=== PATIENT | male | born 1945 | race Caucasian/White ===

== ENCOUNTER 2021-12-02 18:52 | Day surgery (SDC) | payer MEDICARE, OTHER, SELFPAY ==
[2021-12-02 19:05] VITALS: BP 107/70; PULSE 104; RESP 18; TEMP 36.6; O2SAT 98; BMI 25.1
--- NOTE | 2021-12-02 19:17 | ED_ITS ---
HPI - General Adult General: Chief complaint: Urogenital-Male Stated complaint: unable to pee Time Seen by Provider: 12/02/21 19:14 History of Present Illness: Patient is a 76-year-old male with a history of hemorrhoids diabetes presenting to the emergency room for concerns of retained foreign object per rectum and difficulty urinating. Patient tells me that yesterday when he used a pear set up Preparation H. However, patient accidnetly inserted the pair into his rectum. Since then, patient has had difficulty peeing. Patient says that he has not peed all day. He denies any nausea vomiting, fever/chills, chest pain, shortness breath, palpitation, abdominal pain, diarrhea, melena/hematochezia. Onset:32 hrs ago Duration:32 hrs Location:home Severity:moderate Associated symptoms: Deny chest pain, dyspnea, nausea, rash, palpitations or vomiting Review of Systems Const: Denies: fever(s) or chills Eyes: Denies: change in vision ENMT: Denies: mouth pain Card: Denies: chest pain or palpitations Resp: Denies: dyspnea or non-productive cough GI: Denies: abdominal pain, nausea, vomiting or diarrhea : Reports: other (+rectal pain and difficulty voiding); Denies: dysuria Musc: Denies: extremity pain Skin/Breast: Denies: rash or new lesions Neuro: Denies: weakness in extremities Psych: Reports: other (Normal mood) Rivas/Lymph: Denies: easy bruising PFSH ED PFSH: Medical History Diabetes Hemorrhoid Hypertension Social History Smoking and tobacco status: never smoked Alcohol intake: never Substance/Drug Use: never Physical Exam Const: COMMON NORMALS: alert HENMT: COMMON NORMALS: atraumatic HEAD & SCALP: atraumatic MOUTH: moist mucous membranes not abnormal Eye: COMMON NORMALS: EOMs intact bilaterally and conjunctivae normal CONJUNCTIVA: Yes conjunctivae normal Neck/C-Spine: COMMON NORMALS: full ROM and supple Resp: COMMON NORMALS: normal respiratory effort and clear to auscultation bilaterally AUSCULTATION: clear to auscultation bilaterally Cardio: COMMON NORMALS: regular rate RATE: regular rate GI: COMMON NORMALS: Soft to palpation and non-tender PALPATION: Yes Soft to palpation OTHER: +Mild suprapubic TTP. NO guarding rebound, guarding, rigidity. No CVA tenderness to percussion. Neg Gauthier/Neg McBurney's point tenderness, no suprabupic tenderness to palpation. Rectal exam without evidence of hemorrhoids, fissures. No prostatic enlargment, no tenderness of prostate. Stool guiac negative. : OTHER: +Exam supervised by Magdalena MCKENZIE: Normal external genitalia, Testicles non-tender b/l, no erythema. Extremity: COMMON NORMALS: full ROM Neuro: SENSORIUM/ORIENTATION: Yes alert MOTOR EXAM: No Abnormal motor strength present and Other motor observations present (no focal motor deficits) Psych: COMMON NORMALS: speech normal SPEECH: Yes normal speech MOOD & AFFECT: Yes euthymic mood Course Vital Signs: Vital signs: Vital Signs Temperature 97.6 F 12/03/21 00:20 Pulse Rate 60 12/03/21 00:37 Respiratory Rate 18 12/03/21 00:37 Blood Pressure 119/75 12/03/21 00:37 Pulse Oximetry 97 12/03/21 00:37 Oxygen Delivery Me thod 12/03/21 00:37 Oxygen Flow Rate 5 12/03/21 00:00 [facility] [place] - General Adult Medical Decision Making Patient is a 76-year-old male with a history of hemorrhoids diabetes presenting to the emergency room for concerns of retained foreign object per rectum and difficulty urinating. Physical exam, patient is hemodynamically stable with mild suprapubic area tenderness to palpation. X-ray did not show any focal finding. CT abdomen pelvis showed a 6.7 x 9.5 x 7.1 radiographic lesion. This was discussed with Dr. Parikh who assessed patient at bedside. Disposition: OR Lab Data : 12/02/21 20:20 12/02/21 20:20 Radiology Impressions Pelvis X-Ray 12/02/21 19:24 IMPRESSION: No acute findings. Negative for radiodense foreign body seen. Pelvis CT 12/02/21 20:04 IMPRESSION: 1. 6.7 x 9.5 x 7.1 cm radiodensity in the rectum suspected without free air or findings to suggest perforation. 2. Small bilateral right greater than left inguinal hernias containing bowel without dilation. 3. Small umbilical hernia containing omentum without bowel. 4. Two right kidney punctate nonobstructing calyceal stones. Laboratory Results WBC 11.1 10^3/uL (4.0-10.0) H 12/02/21 20:20 RBC 4.37 10^6/uL (4.1-5.3) 12/02/21 20:20 Hgb 14.0 g/dL (11.7-16.6) 12/02/21 20:20 Hct 40.8 % (42.0-52.0) L 12/02/21 20:20 MCV 93.4 fl (80-94) 12/02/21 20:20 MCH 32.0 pg (28.0-34.0) 12/02/21 20: MCHC 34.3 g/dL (30.0-36.0) 12/02/21 20:20 RDW 12.0 % (12.1-15.1) L 12/02/21 20:20 Plt Count 224 10^3/cmm (130-400) 12/02/21 20:20 MPV 10.1 fL (7.4-10.4) 12/02/21 20:20 Neut % (Auto) 81.0 % 12/02/21 20:20 Lymph % (Auto) 10.3 % 12/02/21 20:20 Wilkin % (Auto) 7.7 % 12/02/21 20:20 Eos % (Auto) 0.4 % 12/02/21 20:20 Baso % (Auto) 0.2 % 12/02/21 20:20 Neut # (Auto) 9.02 10^3/uL (1.8-7.7) H 12/02/21 20:20 Lymph # (Auto) 1.1 10^3/uL (0.8-4.8) 12/02/21 20:20 Wilkin # (Auto) 0.9 10^3/uL (0.2-0.9) 12/02/21 20:20 Eos # (Auto) 0.0 10^3/uL (0.0-0.8) 12/02/21 20:20 Baso # (Auto) 0.0 10^3/uL (0.0-0.1) 12/02/21 20:20 Nucleated RBC % (auto) 0 % 12/02/21 20:20 Nucleated RBCs # 0.0 /100WBC 12/02/21 20:20 Sodium 139 mmol/L (136-145) 12/02/21 20:20 Potassium 4.0 mmol/L (3.5-5.1) 12/02/21 20:20 Chloride 102 mmol/L (98-107) 12/02/21 20:20 Carbon Dioxide 26 mmol/L (22-29) 12/02/21 20:20 Anion Gap 15.0 (5-19) 12/02/21 20:20 BUN 34 mg/dL (8-23) H 12/02/21 20:20 Creatinine 1.0 mg/dL (0.7-1.2) 12/02/21 20:20 GFR Calculation Not Reportable 12/02/21 20:20 Glucose 157 mg/dL (65-115) H 12/02/21 20:20 Calculated Osmolality 299 mOsm/kg (285-295) H 12/02/21 20:20 Calcium 9.5 mg/dL (8.5-10.5) 12/02/21 20:20 Total Bilirubin 1.1 mg/dL (0.15-1.2) 12/02/21 20:20 AST 20 U/L (0-40) 12/02/21 20:20 ALT 16 U/L (0-41) 12/02/21 20:20 Alkaline Phosphatase 79 U/L (40-130) 12/02/21 20:20 Total Protein 6.6 g/dL (6.6-8.7) 12/02/21 20:20 Albumin 4.2 g/dL (3.5-5.2) 12/02/21 20:20 Globulin 2.4 g/dL (1.3-4.6) 12/02/21 20:20 Lipase 18 U/L (13-60) 12/02/21 20:20 Imaging Data Other Imaging: Radiologist's impression: [address] [address] [address] Scan Report Signed Patient: Kelby Floyd Unit #: [id number] : 1945 Age/Sex: 76 / M ADM Date: 12/02/21 Loc: ER Room/Bed: Attending Dr: Ordering Provider/Ordering MD: Edouard Lantigua MD Date of Service: 12/02/21 Procedure(s): CT pelvis wo con [id number] Accession Number(s): [id number] Report Number: [id number] PROCEDURE INFORMATION: Exam: CT Pelvis Without Contrast Exam date and time: 12/02/2021 8:11 PM Age: 76 years old Clinical indication: Other: Foreign body (pear) in rectum; Additional info: Retained foreign object TECHNIQUE: Imaging protocol: Computed tomography of the pelvis without contrast. Radiation optimization: All CT scans at this facility use at least one of these dose optimization techniques: automated exposure control; mA and/or kV adjustment per patient size (includes targeted exams where dose is matched to clinical indication); or iterative reconstruction. COMPARISON: CT kidney stone [id number] 01/08/2015 10:30 PM RADIATION DOSE METRICS: Total DLP (mGy-cm): 421.98 FINDINGS: Kidneys and ureters: Two right kidney punctate nonobstructing calyceal stones. Stomach and bowel: Visualized small bowel and colon are unremarkable. Appendix: No evidence of appendicitis. Intraperitoneal space: 6.7 x 9.5 x 7.1 cm radiodensity in the rectum suspected without free air or findings to suggest perforation. Lymph nodes: Unremarkable. No enlarged lymph nodes. Urinary bladder: Normal. No mass. Reproductive: Normal as visualized. Bones/joints: Unremarkable. No acute fracture. No dislocation. Soft tissues: Small bilateral right greater than left inguinal hernias containing bowel without dilation. Small umbilical hernia containing omentum without bowel. CT/CT pelvis wo con [id number] IMPRESSION: 1. 6.7 x 9.5 x 7.1 cm radiodensity in the rectum suspected without free air or findings to suggest perforation. 2. Small bilateral right greater than left inguinal hernias containing bowel without dilation. 3. Small umbilical hernia containing omentum without bowel. 4. Two right kidney punctate nonobstructing calyceal stones. ? Dictated By: Donnell Trujillo MD Signed By: Donnell Trujillo MD Signed Date/Time: 12/02/212103 DD/ [address] [address] XRay Report Signed Patient: Kelby Floyd Unit #: [id number] : 1945 Age/Sex: 76 / M ADM Date: 12/02/21 Loc: ER Room/Bed: Attending Dr: Ordering Provider/Ordering MD: Edouard Lantigua MD Date of Service: 12/02/21 Procedure(s): XR pelvis 1-2V* [id number] Accession Number(s): [id number] Report Number: [id number] PROCEDURE INFORMATION: Exam: XR Pelvis Exam date and time: 12/02/2021 7:30 PM Age: 76 years old Clinical indication: Other: PT stuck pear up rectum; Additional info: Pear per rectum TECHNIQUE: Imaging protocol: Radiologic exam of the pelvis. Views: 1 or 2 view. COMPARISON: CT kidney stone [id number] 01/08/2015 10:30 PM FINDINGS: Bones/joints: Unremarkable. No acute fracture. Soft tissues: Unremarkable. XR/XR pelvis 1-2V* [id number] IMPRESSION: No acute findings.? Negative for radiodense foreign body seen. ? Dictated By: Donnell Trujillo MD Signed By: Donnell Trujillo MD Signed Date/Time: 12/02/212100 Discharge Plan Discharge Patient Disposition: Home Clinical Impression: FB anus/rectum Condition: Stable Discharge Orders: Discharge Order (Routine); Ordered 12/03/21 Ordered By: Medardo Benitze Discharge ED (Routine); Ordered 12/03/21 Ordered By: Medardo Benitez Discharge Diet: Advance as tolerated Discharge Activity: Resume usual activity Coding Level of Care Code ED Aerophysicist for Chg Fwd Exam Comprehensive
--- NOTE | 2021-12-02 19:24 | XRR_ITS ---
PROCEDURE INFORMATION: Exam: XR Pelvis Exam date and time: 12/02/2021 7:30 PM Age: 76 years old Clinical indication: Other: PT stuck pear up rectum; Additional info: Pear per rectum TECHNIQUE: Imaging protocol: Radiologic exam of the pelvis. Views: 1 or 2 view. COMPARISON: CT kidney stone [id number] 01/08/2015 10:30 PM FINDINGS: Bones/joints: Unremarkable. No acute fracture. Soft tissues: Unremarkable. XR/XR pelvis 1-2V* [id number] IMPRESSION: No acute findings. Negative for radiodense foreign body seen.
--- NOTE | 2021-12-02 20:04 | CTR_ITS ---
PROCEDURE INFORMATION: Exam: CT Pelvis Without Contrast Exam date and time: 12/02/2021 8:11 PM Age: 76 years old Clinical indication: Other: Foreign body (pear) in rectum; Additional info: Retained foreign object TECHNIQUE: Imaging protocol: Computed tomography of the pelvis without contrast. Radiation optimization: All CT scans at this facility use at least one of these dose optimization techniques: automated exposure control; mA and/or kV adjustment per patient size (includes targeted exams where dose is matched to clinical indication); or iterative reconstruction. COMPARISON: CT kidney stone [id number] 01/08/2015 10:30 PM RADIATION DOSE METRICS: Total DLP (mGy-cm): 421.98 FINDINGS: Kidneys and ureters: Two right kidney punctate nonobstructing calyceal stones. Stomach and bowel: Visualized small bowel and colon are unremarkable. Appendix: No evidence of appendicitis. Intraperitoneal space: 6.7 x 9.5 x 7.1 cm radiodensity in the rectum suspected without free air or findings to suggest perforation. Lymph nodes: Unremarkable. No enlarged lymph nodes. Urinary bladder: Normal. No mass. Reproductive: Normal as visualized. Bones/joints: Unremarkable. No acute fracture. No dislocation. Soft tissues: Small bilateral right greater than left inguinal hernias containing bowel without dilation. Small umbilical hernia containing omentum without bowel. CT/CT pelvis con [id number] IMPRESSION: 1. 6.7 x 9.5 x 7.1 cm radiodensity in the rectum suspected without free air or findings to suggest perforation. 2. Small bilateral right greater than left inguinal hernias containing bowel without dilation. 3. Small umbilical hernia containing omentum without bowel. 4. Two right kidney punctate nonobstructing calyceal stones.
[2021-12-02 20:28] LABS: Basophils % 0.2 %; Eosinophils % 0.4 %; Hematocrit 40.8 % (42.0-52.0); Lymphocytes # 1.1 10^3/uL (0.8-4.8); Lymphocytes % 10.3 %; Mean Corpuscular HGB Conc 34.3 g/dL (30.0-36.0); Mean Corpuscular Volume 93.4 fl (80-94); Mean Platelet Volume 10.1 fL (7.4-10.4); Monocytes # 0.9 10^3/uL (0.2-0.9); Monocytes % 7.7 %; Neutrophils # 9.02 10^3/uL (1.8-7.7); Nucleated Red Blood Cells % 0 %; Platelet Count 224 10^3/cmm (130-400); Red Blood Count 4.37 10^6/uL (4.1-5.3); White Blood Count 11.1 10^3/uL (4.0-10.0)
[2021-12-02 20:43] LABS: Alanine Aminotransferase 16 U/L (0-41); Albumin Level 4.2 g/dL (3.5-5.2); Alkaline Phosphatase 79 U/L (40-130); Aspartate Amino Transferase 20 U/L (0-40); Blood Urea Nitrogen 34 mg/dL (8-23); Calcium 9.5 mg/dL (8.5-10.5); Carbon Dioxide 26 mmol/L (22-29); Chloride 102 mmol/L (98-107); Creatinine Clr Calc Pharmacy 70.2711; Globulin 2.4 g/dL (1.3-4.6); Glucose 157 mg/dL (65-115); Lipase 18 U/L (13-60); Osmolality Calculated 299 mOsm/kg (285-295); Sodium 139 mmol/L (136-145); Total Bilirubin 1.1 mg/dL (0.15-1.2); Total Protein 6.6 g/dL (6.6-8.7)
--- NOTE | 2021-12-02 21:53 | PM.CONSULT ---
Providers/Reason For Consult Consulting Physician/Specialty*: Medardo Benitez Reason for Consult*: Foreign body in the rectum Primary Care Provider: Akshat Arnett DO History of Present Illness History of Present Illness Kelby Floyd is a 76 year old male History of chronic hemorrhoids he was applying Preparation H which she put on a pear and inserted into his rectum. It happened about 35 hours ago. Since then he is not passing gas, did not have any bowel movements. He feels constant pressure in the rectum. He strains a lot but was not able to pass the foreign body. He presented to the emergency room and CT scan confirmed presence of the foreign body in the rectum Past medical history of diabetes, hypertension He is in good physical shape otherwise. Denies any chest pain, shortness of breath. He is able to walk a mile easily. Review of Systems Narrative: Review of system 10 point review of systems is negative except as per HPI PFSH Acute PFSH: Medical History (Updated 12/02/21 @ 21:58 by Medardo Benitez MD) Diabetes Hemorrhoid Hypertension Social History Smoking and tobacco status: never smoked Alcohol intake: never Substance/Drug Use: never Vitals/I&O/Wt Last Vital Signs Temp 97.8 F 12/02/21 19:05 Pulse 104 H 12/02/21 19:05 Resp 18 12/02/21 19:05 BP 107/70 12/02/21 19:05 Pulse Ox 98 12/02/21 19:05 O2 Del Method 12/02/21 19:05 Weight last 48 hrs Weight 180 lb Physical Exam Narrative: General: Normal Psych: [AAOx3] Eyes: [sclerae are white] Head/ENT: [normocephalic, symmetric] CV: [regular] pulse, [tachychardic], no JVD Lungs: [symmetrical chest rise] Abdomen: [soft, ND, nontender] Ext: [no obvious traumatic deformities] Skin: warm Data : 12/02/21 20:20 12/02/21 20:20 A&P Assessment and plan (1) FB anus/rectum: Plan I personally reviewed CT scan. The patient has a large around shaped foreign body in the rectum. I will not be able to remove it at the bedside without a lot of discomfort and special instruments. The best course to proceed is in the operating room under general anesthesia. I explained to the patient that in case I am not able to remove the foreign body from below, I will perform a laparotomy to pulse from above. The patient expressed understanding. Risks and benefits of surgery were discussed including possibility of infection, bleeding, damage to surrounding structures, possible problems with fecal continence, complications related to general anesthesia, hernia at the incision site, blood clots, exacerbation of hemorrhoid disease, anal fissure. The patient agreed to proceed with removal of the foreign body from the rectum as discussed above. Coding Level of Care Code Acute Dormitory Supervisor for [facility] Chadd Diagnoses FB anus/rectum T18.5XXA
[2021-12-02 22:06] VITALS: BP 108/70; PULSE 72; RESP 16; TEMP 36.9; O2SAT 94
--- NOTE | 2021-12-02 22:15 | ANES.PREANE2 ---
Pre-Anesthetic Assessment Height/Weight: Height 1.8 m Weight 81.647 kg Temp Pulse Resp BP Pulse Ox O2 Del Method 98.4 F 72 16 108/70 94 12/02/21 22:06 12/02/21 22:06 12/02/21 22:06 12/02/21 22:06 12/02/21 22:06 12/02/21 19:05 Preop Diagnosis: Foreing body Operation Date: 12/02/21 23:10 Proposed Procedures p Foreign Body Removal(Not Applicable) - Medardo Benitez MD Familial anesthetic complications: None Was Beta Maribel taken within 24 hours: N/A Was Clonidine taken within 24 hours: N/A Last intake: Last meal 1:30-2:00 pm 12/02/21 Last drink, sip of soda, at 3:00 pm 12/02/21 Social No alcohol and No tobacco Exam alert, oriented x 3, clear to auscultation bilaterally and regular rate & rhythm Airway Submandibular: within normal limits Cervical ROM: within normal limits Mallampati: Class I Dentition: full History/ROS No significant complaints Pulmonary None reported CV/HEM Hypertension METS > 4 None reported Difficulty urinating Hepatic None reported GI None reported Rectal foreign body CT Pelvis CT/CT pelvis wo con [id number] IMPRESSION: 1. 6.7 x 9.5 x 7.1 cm radiodensity in the rectum suspected without free air or findings to suggest perforation. 2. Small bilateral right greater than left inguinal hernias containing bowel without dilation. 3. Small umbilical hernia containing omentum without bowel. 4. Two right kidney punctate nonobstructing calyceal stones. ? Metabolic Diabetes Mellitus Musc/skel None reported Neuropsych None reported Patient denies pain, nausea, vomiting, bloating. Anesthetic Plan ASA status: 2 Anesthesia: Anesthesia Evaluation and General Other: We discussed risk and benefits of general anesthesia including PONV, sore throat (sometimes severe), corneal abrasion, positioning and peripheral nerve injuries, life threatening allergic reaction, post operative ICU admission requiring prolonged intubation, aspiration, stroke, heart attack, , and rare incidences of recall. I discussed with the patient risks, goals, and benefits of MAC and general anesthesia. We discussed spectrum of MAC anesthesia including conversion to general as well as possibility of recall of intraoperative stimuli including discomfort/pain. Patient consents to MAC or General pending further discussion with surgeon. We discussed patient risk of bleeding, patient consents to transfusion as needed. Case discussed with surgeon, plan general. Risk of > 500 ml blood loss (7ml/kg in children): No Medications/Allergies Allergies Allergy/AdvReac Type Severity Reaction Status Date / Time levofloxacin Allergy Unknown Unknown Verified 12/02/21 22:46 ciprofloxacin Allergy Unknown Verified 12/02/21 22:46 [facility] Anesthesia Medical History Diabetes Hemorrhoid Hypertension Social History Smoking and tobacco status: never smoked Alcohol intake: never Substance/Drug Use: never Data Anesthesia : 12/02/21 20:20 12/02/21 20:20 Short CBC 12/02/21 Range/Units 20:20 WBC 11.1 H (4.0-10.0) 10^3/uL Hgb 14.0 (11.7-16.6) g/dL Hct 40.8 L (42.0-52.0) % MCV 93.4 (80-94) fl Plt Count 224 (130-400) 10^3/cmm Neut % (Auto) 81.0 % Neut # (Auto) 9.02 H (1.8-7.7) 10^3/uL BMP 12/02/21 20:20 Sodium 139 Potassium 4.0 Chloride 102 Carbon Dioxide 26 BUN 34 H Creatinine 1.0 Glucose 157 H Calcium 9.5 Liver Function 12/02/21 Range/Units 20:20 Total Bilirubin 1.1 (0.15-1.2) mg/dL AST 20 (0-40) U/L ALT 16 (0-41) U/L Alkaline Phosphatase 79 (40-130) U/L Albumin 4.2 (3.5-5.2) g/dL Cardiac Studies: No Data to Display
--- NOTE | 2021-12-02 22:23 | ECG_ITS ---
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 Measurements Intervals [place] Rate: 73 P: 53 GA: 163 QRS: -6 QRSD: 96 T: 38 QT: 373 QTc: 411 Interpretive Statements SINUS RHYTHM LOW QRS VOLTAGE IN PRECORDIAL LEADS [QRS DEFLECTION < 1.0 mV IN CHEST LEADS] No previous ECG available for comparison Electronically Signed On 12-03-2021 21:19:46 CDT by Lou Jeronimo M.D. [email or web address]
[2021-12-02] MEDS: sodium chloride 0.9% 1,000 ML 125 ML IV (22:43)
[2021-12-02 22:44] VITALS: BP 118/64; PULSE 70; RESP 16; TEMP 37.1; O2SAT 95
--- NOTE | 2021-12-02 22:45 | PC.NURSE ---
patient taken to OR by OR staff
--- NOTE | 2021-12-02 23:57 | PM.OP ---
Operative Report Date of procedure: December 02, 2021 Pre-op diagnosis: December 02, 2021 Preoperative diagnosis: Foreign body in the rectum. Hemorrhoids. Postoperative diagnosis: The same_. Procedure: Exam under anesthesia. Removal of the foreign body from the rectum. Rigid proctoscopy. Surgeon: Medardo Benitez MD, RPVI Start/End time: please, see nursing documentation. Risk Consultant: none Anesthesia: General Endotracheal Anesthesiologist/EQUIPMENT TECH: please, see anesthesia documentation. EBL, ml: [10]ml Specimen: Pear, discarded Complications: none Findings: [Large foreign objects in the rectum, pear]_ Indications: 76-year-old male_ with a clinical picture of foreign body in the rectum Details of the procedure: The patient was identified in the holding area and brought to the operating room and positioned supine on the operating table. Sequential compression devices were applied to bilateral lower extremities to prevent deep venous thromboembolism. Subsequently, [general endotracheal anesthesia] was initiated without any complications. The patient was placed in lithotomy position The surgical area was prepped and draped in a regular sterile fashion. TIME OUT: Immediately prior to procedure, time out was performed to include correct patient, agreement on the procedure to be performed, correct side, site, position, accurate procedure consent, relevant images, antibiotics, fluids. Everybody agreed. [Digital rectal exam was performed under anesthesia. Full 360 circumference of the distal rectum and anal canal was examined. Hemorrhoids were identified. In the lower rectum and age of the foreign body was identified. There was no other pathology At this time I used 22 Tamazight Harry catheter lubricated and placed above the foreign body to release the vacuum. Also provided some traction on the foreign body to prevent migration afterwards. Then using different instruments and retractors the foreign body was removed piecemeal completely. Complication lesion proctoscopy was performed all the way to 20 cm into the distal sigmoid and there was no residual foreign bodies in the rectum and distal sigmoid. There was mild oozing from the mucosal surface, no gross bleeding.] The needle, instrument and sponge counts were correct x 2. The patient tolerated the procedure well, was extubated in the OR and was transferred to the recovery in stable condition.
[2021-12-03] VITALS: BP 119/67; PULSE 75; RESP 16; TEMP 36.5; O2SAT 99
[2021-12-03 00:05] VITALS: BP 132/80; PULSE 70; RESP 18; O2SAT 100
[2021-12-03 00:10] VITALS: BP 118/70; PULSE 73; RESP 18; O2SAT 98
--- NOTE | 2021-12-03 00:13 | ANE.PACU2 ---
Inpatient post-anesthesia follow up: Airway intact: Yes Vital signs: Temperature 97.7 F Pulse Rate 73 Respiratory Rate 18 Blood Pressure 118/70 Pulse Oximetry 98 Oxygen Delivery Me thod Room Air Oxygen Flow Rate 5 Fraction of Inspir ed Oxygen Hydration adequate: Yes Nausea and vomiting: No Pain level: 1 Mental status: Baseline
[2021-12-03 00:15] VITALS: BP 103/72; PULSE 66; RESP 18; O2SAT 98
[2021-12-03 00:20] VITALS: BP 117/85; PULSE 63; PULSE 65; RESP 18; TEMP 36.4; O2SAT 98; O2SAT 99
[2021-12-03 00:37] VITALS: BP 119/75; PULSE 60; RESP 18; O2SAT 97
== END 2021-12-03 00:40 | disposition home or self-care (01) ==
LOC: ER 21:26 → OR 21:53
PROVIDERS: Emergency Provider Emergency Medicine; PCP Electrodiagnostic Medicine; Visit Provider Surgery
PROC: (CPT 45307; principal; 2021-12-02 23:00)
DX: T18.5XXA Foreign body in anus and rectum, initial encounter (principal); K64.9 Unspecified hemorrhoids; E11.9 Type 2 diabetes mellitus without complications; I10 Essential (primary) hypertension
CPT/HCPCS: 45307; 12345; 72170; 72192; 80053; 83690; 85025; 93005; J1100; J2405; J2704; J3010; J3490; J7030

== ENCOUNTER 2021-12-28 14:01 | Outpatient (CLI) | payer MEDICARE, OTHER, SELFPAY ==
--- NOTE | 2021-12-28 14:24 | MR_ITS ---
WS: [id number] MRI LEFT SHOULDER NONCONTRAST TECHNIQUE: Sagittal T2, coronal T1, T2 and proton density imaging. Axial gradient PDE imaging. CLINICAL INFORMATION: OSTEOARTHRITIS L SHOULDER COMPARISON: 4 FINDINGS: Moderate to advanced degenerative arthritis at the AC joint with mild edema. Mild downsloping of the acromium with mild narrowing of the subacromial space. Slight impingement on the distal supraspinatus . Chronic thinning of the distal supraspinatus with tendinopathy. Distal supraspinatus appears intact . Chronic thinning of the infraspinatus which is intact. Normal teres minor. Subscapularis is grossly intact. Biceps tendon intact within the bicipital groove. Intra-articular biceps tendon appears intact. Advan clement degenerative arthritis glenohumeral articulation with subchondral cystic change and joint space n arrowing. Visually small joint capsule with a small amount of edema in the rotator interval with thic kening of the axillary recess. This can be seen with adhesive capsulitis in appropriate clinical sett ing. Subchondral cystic change involving the humeral head progressed compared to 2018. Degenerative f raying of the glenoid labrum. MR/MR shoulder LT wo con* [id number] IMPRESSION: 1. Moderate to advanced degenerative arthritis AC joint with mild downsloping of the acromion. 2. Increased signal distal supraspinatus compatible with tendinopathy. Chronic thinning of the rotator cuff. 3. Biceps tendon is intact within the bicipital groove. Intra-articular biceps tendon appears intact. 4. Advanced joint space narrowing at the glenohumeral articulation with visibl y small joint capsule suspicious for adhesive capsulitis in appropriate clinica l setting. 5. Advanced degenerative narrowing glenohumeral joint with subchondral cystic change progressed compared to 2018. 6. Degenerative fraying of the glenoid labrum is similar in appearance to prev ious.
== END 2021-12-28 14:02 | disposition home or self-care (01) ==
PROVIDERS: PCP Electrodiagnostic Medicine; Visit Provider Orthopaedic Surgery
DX: M19.012 Primary osteoarthritis, left shoulder (principal)
CPT/HCPCS: 73221

== ENCOUNTER 2022-07-01 10:17 | Observation (INO) | payer MEDICARE, OTHER, SELFPAY ==
[2022-07-01] VITALS (12 sets, daily range): BP systolic 96–132; BP diastolic 58–91; PULSE 55–96; RESP 10–20; TEMP 36.1–36.7; O2SAT 91–97; BMI 25.7
--- NOTE | 2022-07-01 11:11 | XRR_ITS ---
PROCEDURE INFORMATION: Exam: XR Abdomen Exam date and time: 07/01/2022 11:20 AM Age: 76 years old Clinical indication: Screening exam; Other: Foreign body in bladder/penis TECHNIQUE: Imaging protocol: Radiologic exam of the abdomen. Views: Frontal supine view of the abdomen. 1 View. COMPARISON: CT pelvis con [id number] 12/02/2021 8:11 PM FINDINGS: Gastrointestinal tract: Normal. No bowel dilation. Bones/joints: Negative for acute bony abnormality. There is a metallic appearing wire coiled in the urinary bladder. The volume of wire inside of the bladder is large and the pattern of coiling is complex. XR/XR KUB portable [id number] IMPRESSION: 1. Metallic wire coiled within the urinary bladder as noted 2. Negative for acute GI abnormality. 3. Negative exam of the bone
[2022-07-01 12:23] LABS: Basophils % 0.2 %; Eosinophils # 0.1 10^3/uL (0.0-0.8); Eosinophils % 0.6 %; Hemoglobin 16.3 g/dL (11.7-16.6); Lymphocytes # 1.2 10^3/uL (0.8-4.8); Mean Corpuscular HGB Conc 33.3 g/dL (30.0-36.0); Mean Corpuscular Hemoglobin 30.8 pg (28.0-34.0); Mean Corpuscular Volume 92.5 fl (80-94); Mean Platelet Volume 10.1 fL (7.4-10.4); Monocytes # 0.7 10^3/uL (0.2-0.9); Monocytes % 5.6 %; Neutrophils % 84.1 %; Nucleated Red Blood Cells % 0 %; Platelet Count 250 10^3/cmm (130-400); Red Cell Distribution Width 12.2 % (12.1-15.1); White Blood Count 13.1 10^3/uL (4.0-10.0)
[2022-07-01 12:32] LABS: INR 0.99 (0.8-1.2)
[2022-07-01 12:41] LABS: Alanine Aminotransferase 22 U/L (0-41); Albumin Level 4.8 g/dL (3.5-5.2); Alkaline Phosphatase 97 U/L (40-130); Anion Gap 16.6 (5-19); Aspartate Amino Transferase 31 U/L (0-40); Blood Urea Nitrogen 20 mg/dL (8-23); Calcium 9.8 mg/dL (8.5-10.5); Carbon Dioxide 27 mmol/L (22-29); Chloride 100 mmol/L (98-107); Globulin 2.6 g/dL (1.3-4.6); Glucose 180 mg/dL (65-115); Osmolality Calculated 295 mOsm/kg (285-295); Potassium 4.6 mmol/L (3.5-5.1); Sodium 139 mmol/L (136-145); Total Bilirubin 0.6 mg/dL (0.15-1.2); Total Protein 7.4 g/dL (6.6-8.7)
--- NOTE | 2022-07-01 12:52 | CT_ITS ---
WS: [id number] CT ABDOMEN PELVIS TECHNIQUE: Contrast-enhanced CT of the abdomen and pelvis with coronal and sagittal reformatted image s. CLINICAL INFORMATION: bladder/penile foreign body COMPARISON: None. DLP: 635.[address] scans at [facility] use at least one of these dose optimization techniques: automated e xposure control; mA and/or kV adjustment per patient size (includes targeted exams where dose is matc hed to clinical indication); or iterative reconstruction. FINDINGS: Radiodense foreign body reported to represent charging cord is visualized looped in the bladder. Ther e appears to be 2 separate ends extending from the penile urethra. This may represent one looped cord versus 2 separate cords. Remainder of the cord is looped in the bladder. No evidence of bladder rupt ure or free air. Mild bladder wall thickening. Partially visualized RIGHT greater than LEFT hydrocele is. Mild diffuse fatty infiltration liver. Normal spleen. Tiny esophageal hiatal hernia. Slight bibasilar atelectasis. Normal portal vein and splenic vein. Adrenal glands are normal. Normal renal parenchyma l enhancement. No hydronephrosis. LEFT renal cyst measuring 6.9 x 5.7 CM. Normal pancreatic parenchym al enhancement. Normal caliber abdominal aorta. Celiac and SMA are patent. Normal gallbladder. Small fat-containing u mbilical hernia. Disc space narrowing L5-S1. CT/CT abdomen pelvis w con* [id number] IMPRESSION: 1. Foreign object representing charging cord visualized within the ureter loop ed in the bladder. 2 separate ends of the cord appear to protrude from the peni le urethra. This may represent 2 separate cords vs one looped cord. 2. No evidence of bladder perforation. Mild bladder wall thickening. 3. No free fluid in the pelvis. 4. Large RIGHT and small LEFT scrotal hydroceles. 5. No other acute findings. Notified Tom Bee DO at 07/01/2022 2:10 PM.
--- NOTE | 2022-07-01 12:56 | W.ED.MALEGU ---
HPI - Male Genitourinary General: Chief complaint: Urogenital-Male Stated complaint: Bladder problem Time Seen by Provider: 07/01/22 11:10 History of Present Illness: Patient presents to the ER with a mobile phone charging cord stuck In his urethra. Patient states he inserted this to keep his urinary tract open. Patient does have a history of BPH and urinary retention per patient. Placed there this morning and could not remove it. MD Complaint: other (Urethral/bladder foreign body) Onset (ago): hour(s) (This morning per patient) Location: penis (Bladder) Severity: moderate Relieving factors: none Exacerbating factors: none Associated symptoms: Deny nausea Review of Systems General: Reports: 10 or more systems reviewed and unremarkable except in HPI and below Const: Denies: fever(s) or chills Eyes: Denies: change in vision or blurry vision ENMT: Denies: throat pain or enlarged tonsils Card: Denies: chest pain or palpitations Resp: Denies: dyspnea or productive cough GI: Denies: abdominal pain or nausea : Denies: flank pain or difficulty urinating Musc: Denies: neck pain or back pain Skin/Breast: Denies: skin tenderness or skin swelling Neuro: Denies: headache(s) or numbness in extremities PFSH ED PFSH: Medical History (Updated 07/01/22 @ 15:28 by Tom Bee DO) Diabetes Hemorrhoid Hypertension Social History Smoking and tobacco status: never smoked Alcohol intake: never Substance/Drug Use: never Physical Exam Const: COMMON NORMALS: no acute distress, average body habitus, patient oriented x3, no limitations, healthy appearing, alert and well nourished HENMT: COMMON NORMALS: normocephalic, atraumatic, hearing grossly normal bilaterally, external ears normal, Normal external nose present and moist oral mucous membranes HEAD & SCALP: normocephalic and atraumatic NOSE: Normal external nose present EXTERNAL EAR: Yes external ears normal Eye: COMMON NORMALS: Equal, round and reactive pupils present, EOMs intact bilaterally, conjunctivae normal and no scleral icterus CONJUNCTIVA: Yes conjunctivae normal PUPIL: Yes Equal, round and reactive pupils present Neck/C-Spine: COMMON NORMALS: full ROM, no lymphadenopathy, supple, no meningeal signs, no JVD and Thyroid normal THYROID: Thyroid normal Lymph: LYMPHATIC: no lymphadenopathy noted Chest: COMMONS NORMALS: normal inspection of the chest and normal palpation of entire chest wall Resp: COMMON NORMALS: normal respiratory effort, No retractions, No use of accessory muscles and clear to auscultation bilaterally AUSCULTATION: clear to auscultation bilaterally Cardio: COMMON NORMALS: no JVD GI: COMMON NORMALS: Normal to inspection, nondistended, normoactive bowel sounds present, Soft to palpation, non-tender, No hepatosplenomegaly present and no masses PALPATION: Yes Soft to palpation and Yes No hepatosplenomegaly present : OTHER: Foreign body extending outside of the penis through the urethra Neuro: COMMON NORMALS: patient oriented x3 SENSORIUM/ORIENTATION: Yes alert MENINGEAL SIGNS: Yes no meningeal signs Course Vital Signs: Vital signs: Vital Signs Temperature 98.1 F 07/01/22 15:00 Pulse Rate 89 07/01/22 15:00 Respiratory Rate 16 07/01/22 15:00 Blood Pressure 132/91 07/01/22 15:00 Pulse Oximetry 95 07/01/22 15:00 Oxygen Delivery Me thod Room Air 07/01/22 15:00 MDM - Male Medical Decision Making Dr. Benitez notified and saw patient in ER Patient presents the ER with a foreign body in his urethra. He was unable to extract. Basic lab work was obtained Dr. Benitez was consulted on the patient in ER. CT scan the abdomen pelvis was obtained to rule out perforation. CT was negative Dr. Benitez came back down to the ER to reevaluate patient and take him to surgery to remove this foreign body. Differential Diagnosis Unlikely urinary tract infection, priapism, urethritis, epididymitis, genital herpes simplex, prostatitis, acute retention of urine or inguinal hernia Medical Records I reviewed the patient's medical records. Lab Data I reviewed the patient's lab results. 07/01/22 11:38 07/01/22 11:38 Radiology Impressions KUB X-Ray 07/01/22 11:11 IMPRESSION: 1. Metallic wire coiled within the urinary bladder as noted 2. Negative for acute GI abnormality. 3. Negative exam of the bone Abdomen/Pelvis CT 07/01/22 12:52 IMPRESSION: 1. Foreign object representing charging cord visualized within the ureter looped in the bladder. 2 separate ends of the cord appear to protrude from the penile urethra. This may represent 2 separate cords vs one looped cord. 2. No evidence of bladder perforation. Mild bladder wall thickening. 3. No free fluid in the pelvis. 4. Large RIGHT and small LEFT scrotal hydroceles. 5. No other acute findings. Notified Tom Bee DO at 07/01/2022 2:10 PM. Laboratory Results WBC 13.1 10^3/uL (4.0-10.0) H 07/01/22 11:38 RBC 5.30 10^6/uL (4.1-5.3) 07/01/22 11:38 Hgb 16.3 g/dL (11.7-16.6) 07/01/22 11:38 Hct 49.0 % (42.0-52.0) 07/01/22 11:38 MCV 92.5 fl (80-94) 07/01/22 11:38 MCH 30.8 pg (28.0-34.0) 07/01/22 11:38 MCHC 33.3 g/dL (30.0-36.0) 07/01/22 11:38 RDW 12.2 % (12.1-15.1) 07/01/22 11:38 Plt Count 250 10^3/cmm (130-400) 07/01/22 11:38 MPV 10.1 fL (7.4-10.4) 07/01/22 11:38 Neut % (Auto) 84.1 % 07/01/22 11:38 Lymph % (Auto) 9.0 % 07/01/22 11:38 [place] % (Auto) 5.6 % 07/01/22 11:38 Eos % (Auto) 0.6 % 07/01/22 11:38 Baso % (Auto) 0.2 % 07/01/22 11:38 Neut # (Auto) 11.00 10^3/uL (1.8-7.7) H 07/01/22 11:38 Lymph # (Auto) 1.2 10^3/uL (0.8-4.8) 07/01/22 11:38 [place] # (Auto) 0.7 10^3/uL (0.2-0.9) 07/01/22 11:38 Eos # (Auto) 0.1 10^3/uL (0.0-0.8) 07/01/22 11:38 Baso # (Auto) 0.0 10^3/uL (0.0-0.1) 07/01/22 11:38 Nucleated RBC % (auto) 0 % 07/01/22 11:38 Nucleated RBCs # 0.0 /100WBC 07/01/22 11:38 PT 13.40 SECONDS (12.1-14.9) 07/01/22 11:38 INR 0.99 (0.8-1.2) 07/01/22 11:38 Sodium 139 mmol/L (136-145) 07/01/22 11:38 Potassium 4.6 mmol/L (3.5-5.1) 07/01/22 11:38 Chloride 100 mmol/L (98-107) 07/01/22 11:38 Carbon Dioxide 27 mmol/L (22-29) 07/01/22 11:38 Anion Gap 16.6 (5-19) 07/01/22 11:38 BUN 20 mg/dL (8-23) 07/01/22 11:38 Creatinine 0.9 mg/dL (0.7-1.2) 07/01/22 11:38 GFR Calculation Not Reportable 07/01/22 11:38 Glucose 180 mg/dL (65-115) H 07/01/22 11:38 Calculated Osmolality 295 mOsm/kg (285-295) 07/01/22 11:38 Calcium 9.8 mg/dL (8.5-10.5) 07/01/22 11:38 Total Bilirubin 0.6 mg/dL (0.15-1.2) 07/01/22 11:38 AST 31 U/L (0-40) 07/01/22 11:38 ALT 22 U/L (0-41) 07/01/22 11:38 Alkaline Phosphatase 97 U/L (40-130) 07/01/22 11:38 Total Protein 7.4 g/dL (6.6-8.7) 07/01/22 11:38 Albumin 4.8 g/dL (3.5-5.2) 07/01/22 11:38 Globulin 2.6 g/dL (1.3-4.6) 07/01/22 11:38 Urine Color [place] (Yellow) 07/01/22 11:34 Urine Appearance Cloudy (CLEAR) A 07/01/22 11:34 Urine pH 5 (5-7) 07/01/22 11:34 Ur Specific [place] 1.025 (1.005-1.030) 07/01/22 11:34 Urine Protein 3+ (Negative) H 07/01/22 11:34 Urine Glucose (UA) Norm (Normal) 07/01/22 11:34 Urine Ketones 1+ (Negative) H 07/01/22 11:34 Urine Blood 3+ (Negative) H 07/01/22 11:34 Urine Nitrate Positive (Negative) H 07/01/22 11:34 Urine Bilirubin Neg (Negative) 07/01/22 11:34 Urine Urobilinogen Norm mg/dL (Negative) 07/01/22 11:34 Ur Leukocyte Esterase 1+ (Negative) H 07/01/22 11:34 Urine RBC Too numerous to cnt /hpf (0-2) H 07/01/22 11:34 Urine WBC 15-25 /hpf (0-5) H 07/01/22 11:34 Ur Squamous Epith Cells None /hpf (0-5) 07/01/22 11:34 Amorphous Sediment Not Reportable 07/01/22 11:34 Urine Bacteria 3+ /hpf (NONE) H 07/01/22 11:34 Discharge Plan Discharge Patient Disposition: Placed in Observation Clinical Impression: Foreign body in bladder Condition: Stable Prescriptions: No Action metformin 500 mg tablet 500 mg PO BID amlodipine 5 mg tablet 5 mg PO BEDTIME ibuprofen 200 mg Tablet 600 mg PO Q8H PRN (Reason: Pain) tadalafil 20 mg tablet 20 mg PO DAILY PRN (Reason: Erectile Dysfunction) valsartan-hydrochlorothiazide 320-25 mg tablet 1 tab PO QAM Lumigan 0.01 % drops 1 drp ophthalmic (eye) BEDTIME Rx Instructions: in left eye PreserVision AREDS-2 250-90-40-1 mg Capsule 1 tab PO BID Referrals: Akshat Arnett DO [Primary Care Provider] - Coding Level of Care Code ED Filler In for [facility]add
[2022-07-01] MEDS: iohexol 350 mg/mL 500 mL Btl (per mL) IV (13:54)
[2022-07-01 14:07] LABS: Add Urine Microscopic? YES; Bilirubin Urine Neg (Negative); Blood Urine 3+ (Negative); Glucose Urine UA Norm (Normal); Ketones Urine 1+ (Negative); Leukocyte Esterase Urine 1+ (Negative); Nitrate Urine Positive (Negative); Protein Urine 3+ (Negative); Specific Gravity, Urine 1.025 (1.005-1.030); Urine Appearance Cloudy (CLEAR); Urine Color Amber (Yellow); Urobilinogen Urine Norm (Negative); pH Urine 5 (5-7)
[2022-07-01 14:09] LABS: Add Urine Culture? Yes; Bacteria Urine 3+ /hpf; RBC Urine TOO NUMEROUS TO CNT /hpf (0-2); WBC Urine 15-25 /hpf (0-5)
--- NOTE | 2022-07-01 14:56 | PM.HP ---
Providers/Chief Complaint Primary Care Provider: Akshat Arnett DO Chief Complaint: Bladder problem History of Present Illness Kelby Floyd is a 76 year old male evaluated previously history of foreign body in the bladder in 2006 requiring cystoscopic removal. More recently required surgical removal of a pear from his rectum last year. Presented to the emergency department today with inability to remove a wire which he had passed into the bladder. He had tried it but could not remove it. Was afraid to pull hard. KUB showed a knotted up looking electrical cord in the bladder with distal ends of the wire protruding from the urethra. No fever or chills. Did have some gross hematuria. Work-up in the emergency department included a urinalysis that showed evidence of infection. CT scan showed no evidence of bladder perforation. White count was mildly elevated at 13,000. Recommended to take to the operating room for cystoscopic examination and if possible removal via cystoscopy and if not then proceed to open removal via cystotomy All of this was explained in detail to the patient. He expressed good understanding. Benefits risk potential complications alternatives thoroughly reviewed. Not too many other options available. Perioperative limitations and expectations explained. He will be required to stay in the hospital at least 1 night possibly more pending recovery postop. Will be placed on IV antibiotics given the status of his urine. Culture has been sent. We will place him on observation status postop. He will need to be discharged with a catheter in place for at least 7 to 10 days. Informed consent was obtained Review of Systems Const: Denies: fever(s) or chills Eyes: Denies: change in vision or eye discharge ENMT: Denies: hoarseness Card: Denies: chest pain or palpitations Resp: Denies: dyspnea, productive cough or wheezing GI: Denies: abdominal pain, nausea or vomiting : Reports: urinary urgency and hematuria (Has cleared) Musc: Denies: joint swelling or joint redness Skin/Breast: Denies: rash or sores Neuro: Denies: confusion or Slurred speech present Psych: Denies: anxiety or memory loss Endo: Denies: tired all the time [place]/Lymph: Denies: easy bruising or easy bleeding All/Imm: Denies: urticaria or acute wheezing Medications/Allergies Home Medications Medication Instructions Recorded Confirmed Last Taken Type amlodipine 5 mg tablet 5 mg PO BEDTIME 07/01/22 07/01/22 06/30/22 History bimatoprost 0.01 % eye drops 1 drp ophthalmic (eye) BEDTIME 07/01/22 07/01/22 06/30/22 History ([place]umigan) ibuprofen 200 mg tablet 600 mg PO Q8H PRN Pain 07/01/22 07/01/22 Unknown History metformin 500 mg tablet 500 mg PO BID 07/01/22 07/01/22 07/01/22 06:30 History tadalafil 20 mg tablet 20 mg PO DAILY PRN Erectile 07/01/22 07/01/22 Unknown History Dysfunction valsartan 320 1 tab PO QAM 07/01/22 07/01/22 07/01/22 06:30 History mg-hydrochlorothiazide 25 mg tablet vit C 250 mg-vit E 90 mg-zinc 40 1 tab PO BID 07/01/22 07/01/22 07/01/22 History mg-copper 1 [id number] capsule (PreserVision AREDS-2) Allergies Allergy/AdvReac Type Severity Reaction Status Date / Time levofloxacin Allergy Unknown Unknown Verified 07/01/22 13:41 ciprofloxacin Allergy Unknown Verified 07/01/22 13:41 PFSH Acute PFSH: Medical History Diabetes Hemorrhoid Hypertension Social History Smoking and tobacco status: never smoked Alcohol intake: never Substance/Drug Use: never Vitals/I&O/Wt Last Vital Signs Temp 97.9 F 07/01/22 11:06 Pulse 96 07/01/22 11:06 Resp 16 07/01/22 11:06 BP 122/80 07/01/22 11:06 Pulse Ox 97 07/01/22 11:06 O2 Del Method Room Air 07/01/22 11:06 Weight last 48 hrs Weight 185 lb Physical Exam Const: COMMON NORMALS: no acute distress, alert and well nourished GENERAL APPEARANCE: well kempt and well developed ORIENTATION/CONSCIOUSNESS: not confused HENMT: COMMON NORMALS: normocephalic HEAD & SCALP: normal to inspection and normocephalic Eye: COMMON NORMALS: conjunctivae normal and no scleral icterus CONJUNCTIVA: Yes conjunctivae normal Neck/C-Spine: GENERAL: Yes normal visual inspection Lymph: OTHER: No groin lymphadenopathy Chest: OTHER: Normal chest movements Resp: COMMON NORMALS: normal respiratory effort EFFORT & INSPECTION: Yes able to speak in complete sentences, No labored and No Actively coughing GI: OTHER: Abdomen is soft. He does have some tenderness bladder. It does not appear to be distended. No rebound. No surgical abdomen No abdominal wounds : OTHER: Normal male genitalia Scrotum is enlarged from the hydrocele previously defined. Right greater than sign left Normal perineum Back/Pelvis: OTHER: No CVA tenderness good range of motion Extremity: COMMON NORMALS: no clubbing, cyanosis or edema Neuro: COMMON NORMALS: no focal motor deficits SENSORIUM/ORIENTATION: Yes alert Psych: COMMON NORMALS: mental status grossly normal APPEARANCE: Yes grossly normal and Yes well kempt ATTITUDE: Yes calm and Yes engaged Skin: COMMON NORMALS: no rashes or lesions noted and no jaundice GENERAL SKIN EXAM: no rashes or lesions noted Data 07/01/22 11:38 07/01/22 11:38 A&P Assessment and plan (1) Foreign body in bladder: Electrical cord of some variety. Appears knotted in the bladder (2) Diabetes: We will plan on continuing his metformin (3) Hypertension: Continue his antihypertensive medication Plan To the operating room for removal of foreign body bladder either cystoscopically if possible but more likely open cystotomy Attestations Medical Necessity Statement*: Requires surgical intervention for foreign body in his bladder Coding Level of Care Code Acute Code for Chg Fwd Diagnoses Foreign body in bladder T19.1XXA Diabetes E11.9 Hypertension I10
[2022-07-01] MEDS: sodium chloride 0.9% 1,000 ML 30 ML IV (15:09)
[2022-07-01] MEDS: cefTRIAXone 1,000 MG in sodium chloride 0.9% (plus) 50 ML 100 MG IV (15:17)
--- NOTE | 2022-07-01 15:42 | ANES.PREANE2 ---
Pre-Anesthetic Assessment Height/Weight: Height 1.8 m Weight 83.915 kg Temp Pulse Resp BP Pulse Ox O2 Del Method 98.1 F 89 16 132/91 95 Room Air 07/01/22 15:00 07/01/22 15:00 07/01/22 15:00 07/01/22 15:00 07/01/22 15:00 07/01/22 15:00 Operation Date: 07/01/22 14:30 Proposed Procedures p Removal foreign body bladder via cystoscopy or cystotomy(Not Applicable) - Archie Benitez MD Familial anesthetic complications: none Was Beta Maribel taken within 24 hours: N/A Was Clonidine taken within 24 hours: N/A Last intake: Intake Last Liquid Date 07/01/22 Last Liquid Time 07:00 Last Solid Date 06/30/22 Last Solid Time 20:00 Social No alcohol and No tobacco Exam alert, oriented x 3, clear to auscultation bilaterally and regular rate & rhythm Airway Submandibular: within normal limits Cervical ROM: within normal limits Mallampati: Class II Dentition: chipped CV/HEM Hypertension Metabolic Diabetes Mellitus Anesthetic Plan ASA status: 2E Anesthesia: General Medications/Allergies Home Medications Medication Instructions Recorded Confirmed Last Taken Type amlodipine 5 mg tablet 5 mg PO BEDTIME 07/01/22 07/01/22 06/30/22 History bimatoprost 0.01 % eye drops 1 drp ophthalmic (eye) BEDTIME 07/01/22 07/01/22 06/30/22 History ([place]) ibuprofen 200 mg tablet 600 mg PO Q8H PRN Pain 07/01/22 07/01/22 Unknown History metformin 500 mg tablet 500 mg PO BID 07/01/22 07/01/22 07/01/22 06:30 History tadalafil 20 mg tablet 20 mg PO DAILY PRN Erectile 07/01/22 07/01/22 Unknown History Dysfunction valsartan 320 1 tab PO QAM 07/01/22 07/01/22 07/01/22 06:30 History mg-hydrochlorothiazide 25 mg tablet vit C 250 mg-vit E 90 mg-zinc 40 1 tab PO BID 07/01/22 07/01/22 07/01/22 History mg-copper 1 [id number] capsule (PreserVision AREDS-2) Allergies Allergy/AdvReac Type Severity Reaction Status Date / Time levofloxacin Allergy Unknown Unknown Verified 07/01/22 13:41 ciprofloxacin Allergy Unknown Verified 07/01/22 13:41 Current Medications Generic Name Dose Route Start Last Admin Trade Name Stacie PRN Reason Stop Dose Admin Sodium Chloride 1,000 mls @ 30 mls/hr 07/01/22 15:00 07/01/22 15:09 Sodium Chloride 0.9% IV 07/02/22 14:59 30 mls/hr .Q24H NORMAN Administration PFSH Anesthesia Medical History (Updated 07/01/22 @ 15:28 by Tom Bee DO) Diabetes Hemorrhoid Hypertension Social History Smoking and tobacco status: never smoked Alcohol intake: never Substance/Drug Use: never Data Anesthesia 07/01/22 11:38 07/01/22 11:38 Short CBC 07/01/22 Range/Units 11:38 WBC 13.1 H (4.0-10.0) 10^3/uL Hgb 16.3 (11.7-16.6) g/dL Hct 49.0 (42.0-52.0) % MCV 92.5 (80-94) fl Plt Count 250 (130-400) 10^3/cmm Neut % (Auto) 84.1 % Neut # (Auto) 11.00 H (1.8-7.7) 10^3/uL BMP 07/01/22 11:38 Sodium 139 Potassium 4.6 Chloride 100 Carbon Dioxide 27 BUN 20 Creatinine 0.9 Glucose 180 H Calcium 9.8 Liver Function 07/01/22 Range/Units 11:38 Total Bilirubin 0.6 (0.15-1.2) mg/dL AST 31 (0-40) U/L ALT 22 (0-41) U/L Alkaline Phosphatase 97 (40-130) U/L Albumin 4.8 (3.5-5.2) g/dL Urine 07/01/22 Range/Units 11:34 Urine Color [place] (Yellow) Urine Appearance Cloudy A (CLEAR) Urine pH 5 (5-7) Ur Specific [place] 1.025 (1.005-1.030) Urine Protein 3+ H (Negative) Urine Glucose (UA) Norm (Normal) Urine Ketones 1+ H (Negative) Urine Nitrate Positive H (Negative) Urine Bilirubin Neg (Negative) Ur Leukocyte Esterase 1+ H (Negative) Urine RBC Too numerous to cnt H (0-2) /hpf Urine WBC 15-25 H (0-5) /hpf Prabhu 07/01/22 11:38 PT 13.40 INR 0.99 Cardiac Studies: No Data to Display
[2022-07-01] MEDS: lidocaine 2% Urojet 20 mL XX (15:48)
--- NOTE | 2022-07-01 17:08 | PM.OP ---
Operative Report Date of procedure: July 01, 2022 Pre-op diagnosis: Foreign body bladder, coiled wire Post-op diagnosis: Foreign body bladder, coiled wire Procedure done: 1. Cystoscopy 2. Removal of formed body bladder via open cystotomy Implants: 1. Right lower quadrant bulb drain 2. Harry catheter Specimens removed/disposition: Foreign body in bladder (coiled wire) Pathology: Same Surgeon: Emmanuel Estimated blood loss: Less than 25 cc Urine output: Not measured Complications: None Findings: Anesthesia: General Condition: Stable Disposition: PACU Intraoperative findings: Large coil of dense thick wire in bladder. Could not safely pull out. Cystotomy required for removal. Brief History: Mr. Floyd is a 76-year-old white male with a history of placement of foreign bodies per urethra and per rectum. Presented to the emergency department today with complaints of foreign body in the bladder characterized as wire. The 2 ends were emanating from the urethral meatus. It was a dense thick gauge of wire and on KUB showed multiple coils in the bladder. It had a knotted appearance. CT scan was performed to confirm no evidence of perforation. Bladder was confirmed to be intravesical and no evidence of urine extravasation or perforation. It was recommended that he undergo surgical evaluation first with cystoscopy and if by chance able to remove the wire do so but more likely require open cystotomy for wire removal. Procedure: After urgent evaluation examination and obtaining of informed consent he was taken to the operating suite on 07/01/2022 where general anesthesia was administered without difficulty after appropriate timeout was performed, SCDs confirmed to be functioning, preoperative antibiotics administered, beta-travis protocol confirmed. Prepped and draped in usual sterile fashion in dorsolithotomy position pain careful attention to avoiding pressure points. A 17 [place]an cystoscope was attempted to be passed next to the 2 wires emanating from the urethral meatus but it was too large. Attempts at passing an 8 [place]an red rubber catheter in order to facilitate filling of the bladder for the procedure were unsuccessful due to its lack of stiffness. A 7 [place]an offset semirigid ureteroscope was then passed directly next to the wires with mild difficulty into the bladder. The bladder was filled for several minutes until was palpable above the symphysis. It was decided at this point to transition to cystotomy for bladder removal with clear inability to remove the coiled thick dense wire cystoscopically. It certainly could not be covered and instrument available through the cystoscope. He was then reprepped and draped in supine position in sterile fashion. A midline incision was made from just above the symphysis pubis to below the umbilicus. Incision was taken down through skin and subcutaneous tissue through the linea alba. The retrovesical space was developed bluntly and the bladder was easily identified. 2 Malcolm clamps were placed on the anterior bladder wall and easily obtainable location and then the bladder was opened between the 2 clamps and drained with suction. This incision was extended for approximately centimeters and the hole of the wire was secured and easily withdrawn. It was in fact knotted. Bladder was then copiously irrigated with 2 L of saline. A 20 [place]an Harry catheter was placed on the field and the catheter confirmed to be in appropriate position before the balloon was inflated. Balloon loosely snug to the bladder neck. The bladder was then closed in layers utilizing 3-0 Vicryl for the mucosal muscularis layer in a running fashion, a running 2-0 Vicryl for the adventitial muscular layer, and then several interrupted 2-0 Vicryl's for imbrication of the incision. 180 cc was instilled into the bladder and the repair was confirmed to be watertight. A 10 [place]an round bulb drain was then placed in the right lower quadrant through the skin subcutaneous tissue through the rectus fascia down in the perivesical space that had been bluntly developed but not directly over the incision. The drain was shortened based on the size of the space available and placed to bulb suction copiously irrigated again. Rectus fascia was closed with running suture. Closure was confirmed to be adequate. Wound was irrigated again and 3 interrupted 3-0 Vicryl were placed to approximate the slightly and then the skin was closed with final layer of sabi. Sterile dressing was applied. Drain sponge was applied to the exit site of the drain. Catheter was confirmed to be functioning. It was placed to dependent drainage. He tolerated the procedure well without complications. He was awakened in the operating room and returned to PACU in stable condition. PLANS: 1. Continue home medications 2. Advance diet as tolerated 3. Will discharge with Harry catheter in place with plans for 7 to 10 days indwelling
--- NOTE | 2022-07-01 17:46 | ANE.PACU2 ---
Inpatient post-anesthesia follow up: Airway intact: Yes Vital signs: Temperature 97 F Pulse Rate 66 Respiratory Rate 15 Blood Pressure 101/58 Pulse Oximetry 96 Oxygen Delivery Me thod Room Air Oxygen Flow Rate Fraction of Inspir ed Oxygen Hydration adequate: Yes Nausea and vomiting: No Pain level: 3 Mental status: Baseline
[2022-07-01] MEDS: metformin 500 mg Tablet PO (18:11)
[2022-07-01 20:33] LABS: Glucose Point of Care 191 mg/dL (70-110)
[2022-07-01] MEDS: amlodipine 5 mg Tablet PO (21:37)
[2022-07-01] MEDS: sennosides 8.6 mg Tablet 17.2 MG PO (21:37)
[2022-07-02 01:15] VITALS: BP 100/59; PULSE 66; O2SAT 95
[2022-07-02] MEDS: cefTRIAXone 1,000 MG in sodium chloride 0.9% (plus) 50 ML 100 MG IV (02:45)
[2022-07-02 03:15] VITALS: BP 97/62; PULSE 71; TEMP 36.6; O2SAT 96
--- NOTE | 2022-07-02 05:44 | PC.NURSE ---
On rounds this morning pt decided that he did in fact want to have a Pneumovax prior to discharge. Assessment updated.
[2022-07-02 05:52] LABS: Basophils % 0.1 %; Hematocrit 43.1 % (42.0-52.0); Hemoglobin 14.5 g/dL (11.7-16.6); Lymphocytes # 1.5 10^3/uL (0.8-4.8); Lymphocytes % 9.8 %; Mean Corpuscular HGB Conc 33.6 g/dL (30.0-36.0); Mean Corpuscular Hemoglobin 30.9 pg (28.0-34.0); Mean Corpuscular Volume 91.9 fl (80-94); Mean Platelet Volume 10.4 fL (7.4-10.4); Monocytes # 1.1 10^3/uL (0.2-0.9); Monocytes % 7.6 %; Neutrophils # 12.17 10^3/uL (1.8-7.7); Neutrophils % 81.9 %; Nucleated Red Blood Cells % 0 %; Platelet Count 239 10^3/cmm (130-400); Red Blood Count 4.69 10^6/uL (4.1-5.3); Red Cell Distribution Width 12.2 % (12.1-15.1); White Blood Count 14.9 10^3/uL (4.0-10.0)
[2022-07-02 06:43] LABS: Glucose Point of Care 163 mg/dL (70-110)
--- NOTE | 2022-07-02 07:26 | P.DS_ITS ---
Discharge Providers Date of Admission: 07/01/22 17:27 Date of Discharge: July 02, 2022 Attending Provider at Admission: Archie Benitez MD Attending Provider at Discharge: Archie Benitez MD Primary Care Provider: Akshat Arnett DO Diagnoses at Discharge Discharge Diagnosis (1) Foreign body in bladder: Details from hospital stay: Large piece of heavy gauge wire curled in bladder. Required open removal. Status: Acute Qualifiers: Encounter type: initial encounter Qualified Code(s): T19.1XXA - Foreign body in bladder, initial encounter (2) Diabetes: Status: Acute (3) Hypertension: Status: Acute Reason for Visit Reason for Visit: Bladder problem Hospital Course Hospital Course Admitted through the emergency room for foreign body in the bladder that cannot be removed manually. CT scan showed no evidence of perforation. Urine was infected. Was taken to the operating room. The only scope I could get past the wire as well as a ureteroscope into the bladder. Bladder was filled through the ureteroscope. The wires were heavy-gauge and it was heavily balled up in the bladder. He was converted to an open procedure which went well. Bladder was copiously irrigated as was the retrovesical space. Small drain was left indwelling. Harry catheter was left indwelling and to be remain in for at least 7 to 10 days. Postoperatively he did well. Was maintained on antibiotics through the hospital stay and at discharge. Wound was healing well without evidence of infection. Drain was not putting out much fluid and was removed. Strict instructions regarding perioperative limitations were provided and the rationale for that. Encouraged him to do what ever it takes to avoid this type of self-destructive behavior. Physical Exam Const: COMMON NORMALS: no acute distress, alert and well nourished GENERAL APPEARANCE: well kempt and well developed ORIENTATION/CONSCIOUSNESS: not confused Resp: COMMON NORMALS: normal respiratory effort EFFORT & INSPECTION: Yes able to speak in complete sentences, No labored and No Actively coughing Neuro: COMMON NORMALS: no focal motor deficits SENSORIUM/ORIENTATION: Yes alert Psych: COMMON NORMALS: mental status grossly normal APPEARANCE: Yes grossly normal and Yes well kempt ATTITUDE: Yes calm and Yes engaged Skin: COMMON NORMALS: no rashes or lesions noted and no jaundice GENERAL SKIN EXAM: no rashes or lesions noted Urinary Catheter Management: 2-way Urethral: Cath Placed During This Visit: yes Reason for Continuing Indwelling Catheter: Perioperative Use in Selected Surgeries Urinary Catheter Date of Insertion: 07/01/22 Urinary Catheter Time of Insertion: 16:35 Discharge Data Studies Completed and Pending Completed Studies During Hospitalization Category Date Time Status CT abdomen pelvis w con* [id number] Stat Cat Scan 07/01/22 12:52 Completed XR KUB portable [id number] Stat Exams 07/01/22 11:11 Completed Pending at discharge Category Date Time Status Urine Culture Stat Lab 07/01/22 11:34 Received Pathology: Surgical [PTH] Routine Pth 07/01/22 16:59 Ordered Radiology Impressions KUB X-Ray 07/01/22 11:11 IMPRESSION: 1. Metallic wire coiled within the urinary bladder as noted 2. Negative for acute GI abnormality. 3. Negative exam of the bone Abdomen/Pelvis CT 07/01/22 12:52 IMPRESSION: 1. Foreign object representing charging cord visualized within the ureter looped in the bladder. 2 separate ends of the cord appear to protrude from the penile urethra. This may represent 2 separate cords vs one looped cord. 2. No evidence of bladder perforation. Mild bladder wall thickening. 3. No free fluid in the pelvis. 4. Large RIGHT and small LEFT scrotal hydroceles. 5. No other acute findings. Notified Tom Bee DO at 07/01/2022 2:10 PM. Laboratory Results WBC 14.9 10^3/uL (4.0-10.0) H 07/02/22 05:32 RBC 4.69 10^6/uL (4.1-5.3) 07/02/22 05:32 Hgb 14.5 g/dL (11.7-16.6) 07/02/22 05:32 Hct 43.1 % (42.0-52.0) 07/02/22 05:32 MCV 91.9 fl (80-94) 07/02/22 05:32 MCH 30.9 pg (28.0-34.0) 07/02/22 05:32 MCHC 33.6 g/dL (30.0-36.0) 07/02/22 05:32 RDW 12.2 % (12.1-15.1) 07/02/22 05:32 Plt Count 239 10^3/cmm (130-400) 07/02/22 05:32 MPV 10.4 fL (7.4-10.4) 07/02/22 05:32 Neut % (Auto) 81.9 % 07/02/22 05:32 Lymph % (Auto) 9.8 % 07/02/22 05:32 [place] % (Auto) 7.6 % 07/02/22 05:32 Eos % (Auto) 0.0 % 07/02/22 05:32 Baso % (Auto) 0.1 % 07/02/22 05:32 Neut # (Auto) 12.17 10^3/uL (1.8-7.7) H 07/02/22 05:32 Lymph # (Auto) 1.5 10^3/uL (0.8-4.8) 07/02/22 05:32 [place] # (Auto) 1.1 10^3/uL (0.2-0.9) H 07/02/22 05:32 Eos # (Auto) 0.0 10^3/uL (0.0-0.8) 07/02/22 05:32 Baso # (Auto) 0.0 10^3/uL (0.0-0.1) 07/02/22 05:32 Nucleated RBC % (auto) 0 % 07/02/22 05:32 Nucleated RBCs # 0.0 /100WBC 07/02/22 05:32 PT 13.40 SECONDS (12.1-14.9) 07/01/22 11:38 INR 0.99 (0.8-1.2) 07/01/22 11:38 Sodium 139 mmol/L (136-145) 07/01/22 11:38 Potassium 4.6 mmol/L (3.5-5.1) 07/01/22 11:38 Chloride 100 mmol/L (98-107) 07/01/22 11:38 Carbon Dioxide 27 mmol/L (22-29) 07/01/22 11:38 Anion Gap 16.6 (5-19) 07/01/22 11:38 BUN 20 mg/dL (8-23) 07/01/22 11:38 Creatinine 0.9 mg/dL (0.7-1.2) 07/01/22 11:38 GFR Calculation Not Reportable 07/01/22 11:38 Glucose 180 mg/dL (65-115) H 07/01/22 11:38 POC Glucose 163 mg/dL (70-110) H 07/02/22 06:28 Calculated Osmolality 295 mOsm/kg (285-295) 07/01/22 11:38 Calcium 9.8 mg/dL (8.5-10.5) 07/01/22 11:38 Total Bilirubin 0.6 mg/dL (0.15-1.2) 07/01/22 11:38 AST 31 U/L (0-40) 07/01/22 11:38 ALT 22 U/L (0-41) 07/01/22 11:38 Alkaline Phosphatase 97 U/L (40-130) 07/01/22 11:38 Total Protein 7.4 g/dL (6.6-8.7) 07/01/22 11:38 Albumin 4.8 g/dL (3.5-5.2) 07/01/22 11:38 Globulin 2.6 g/dL (1.3-4.6) 07/01/22 11:38 Urine Color [place] (Yellow) 07/01/22 11:34 Urine Appearance Cloudy (CLEAR) A 07/01/22 11:34 Urine pH 5 (5-7) 07/01/22 11:34 Ur Specific Mobile 1.025 (1.005-1.030) 07/01/22 11:34 Urine Protein 3+ (Negative) H 07/01/22 11:34 Urine Glucose (UA) Norm (Normal) 07/01/22 11:34 Urine Ketones 1+ (Negative) H 07/01/22 11:34 Urine Blood 3+ (Negative) H 07/01/22 11:34 Urine Nitrate Positive (Negative) H 07/01/22 11:34 Urine Bilirubin Neg (Negative) 07/01/22 11:34 Urine Urobilinogen Norm mg/dL (Negative) 07/01/22 11:34 Ur Leukocyte Esterase 1+ (Negative) H 07/01/22 11:34 Urine RBC Too numerous to cnt /hpf (0-2) H 07/01/22 11:34 Urine WBC 15-25 /hpf (0-5) H 07/01/22 11:34 Ur Squamous Epith Cells None /hpf (0-5) 07/01/22 11:34 Amorphous Sediment Not Reportable 07/01/22 11:34 Urine Bacteria 3+ /hpf (NONE) H 07/01/22 11:34 Procedures Performed Cystoscopy, foreign body removal of bladder via cystostomy Vitals Last Vital Signs Temp 97.8 F 07/02/22 03:15 Pulse 71 07/02/22 03:15 Resp 15 07/01/22 17:37 BP 97/62 07/02/22 03:15 Pulse Ox 96 07/02/22 03:15 O2 Del Method Room Air 07/01/22 19:45 Discharge Plan Discharge Patient Disposition: Home Condition: Stable Prescriptions: New cefdinir 300 mg capsule 300 mg PO BID 10 Days Qty: 28 0RF Continued metformin 500 mg tablet 500 mg PO BID amlodipine 5 mg tablet 5 mg PO BEDTIME ibuprofen 200 mg Tablet 600 mg PO Q8H PRN (Reason: Pain) tadalafil 20 mg tablet 20 mg PO DAILY PRN (Reason: Erectile Dysfunction) valsartan-hydrochlorothiazide 320-25 mg tablet 1 tab PO QAM Lumigan 0.01 % drops 1 drp ophthalmic (eye) BEDTIME Rx Instructions: in left eye PreserVision AREDS-2 250-90-40-1 mg Capsule 1 tab PO BID Discharge Orders: Discharge Order (Routine); Ordered 07/02/22 Ordered By: Archie Benitez Referrals: Archie Benitez MD [Physician] - 07/10/22 (Voiding trial [facility] instruction Staple removal) Akshat Arnett DO [Primary Care Provider] - Discharge Diet: Usual diet Discharge Activity: Limit activity as instructed Patient Instructions: Opioid Safety Activity Restrictions/Additional Instructions: 1. You will be discharged with a catheter in place and we will plan on removing it next week. You can use a leg bag or night bag per your preference. Please do not remove it prematurely. 2. Your urine showed infection upon admission. It would be important to keep you on antibiotics until after the catheter has been removed. 3. Please call if you have any concerns regarding infection such as symptoms of fever, chills, progressive malaise etc. 4. We will plan on seeing you back next week for staple removal and catheter removal. You can take the dressing off if it becomes soiled. Discharge Attestations Time Spent in Discharge Care*: less than 30 min Quality Metrics Clinical Quality Measures [ No reported AMI, CVA or VTE this stay] Coding Level of Care Code Acute Code for Chg Fwd Diagnoses Foreign body in bladder T19.1XXA Encounter type: initial encounter Diabetes E11.9 Hypertension I10
[2022-07-02 08:00] VITALS: BP 119/68; PULSE 76; RESP 16; TEMP 37.1; O2SAT 97
[2022-07-02] MEDS: pneumococcal (23 valent) SDV 0.5 mL IM (10:46)
[2022-07-02] MEDS: losartan 50 mg Tablet 100 MG PO (10:50)
[2022-07-02] MEDS: metformin 500 mg Tablet PO (10:50)
[2022-07-02] MEDS: hydroCHLOROthiazide 25 mg Tablet PO (10:50)
--- NOTE | 2022-07-02 11:14 | PC.CHAP ---
Pastoral Care Encounter/Spiritual Assessment Type of Contact [] Declined technology training associate visit [] Patient/Family/Request visit [] Outpatient visit [] Follow-up visit [] Physician referral [] Code/Alert [x] Routine visit [] Staff referral [] Actively dying [] Patient sleeping [] Family support [] [] Out of room [] Palliative care [] [] Receiving care in room [] Pre-surgical visit [] Trauma [] Long length of stay [] ICU visit [] Other: Relational/Emotional Strength [x] Patient feels connected with others/family/visitors/staff [] Distress [] Loneliness/isolation [] Abandonment Spirituality of Patient [x] Person of Fariba [x] Attends Jain of their Fariba [x] Believes in Prayer [x] Reads Bible or Christianity materials [] There are Spiritual issues to be addressed Research Professional Interventions [x] Prayer [x] Active listening [] Non-anxious presence [x] Spiritual/emotional support [] Crisis/trauma care [] Spiritual counseling [] Bereavement support [] Provided bereavement packet [x] Provided Bible/devotional materials [] Provided toy/stuffed animal, coloring book to patient or family member [] Provided Communion [] Anointing/[place] [] Salvation [x] Completed spiritual assessment [] Other: Impact on Illness or Injury [] Angry [] Fearful [] Anxious [] Often cries [] Exhaustion [] Unable to work [] Unable to attend restoration [] Unable to walk/stand [] Unable to read [] Unable to drive [] Unable to eat/drink [] Unable to sleep [] Unable to be with family [] Patient intubated [] Other: Summary Time spent with patient 10 min
[2022-07-02 11:46] LABS: Glucose Point of Care 196 mg/dL (70-110)
[2022-07-02 13:30] VITALS: BP 104/65; PULSE 75; RESP 16; TEMP 36.8; O2SAT 93
[2022-07-02 15:26] VITALS: BP 104/65; PULSE 75; RESP 16; TEMP 36.8; O2SAT 93
== END 2022-07-02 15:34 | disposition home or self-care (01) ==
LOC: ER 15:47 → MEDSURG 18:48
PROVIDERS: Admitting Provider Urology; Emergency Provider Emergency Medicine; PCP Electrodiagnostic Medicine; Visit Provider Urology
PROC: 0TJB8ZZ Inspection of Bladder, Via Natural or Artificial Opening Endoscopic (ICD-10-PCS; CPT 52000; principal; 2022-07-01 14:10)
PROC: (CPT 51050; 2022-07-01 14:10)
DX: T19.1XXA Foreign body in bladder, initial encounter (principal); E11.9 Type 2 diabetes mellitus without complications; I10 Essential (primary) hypertension; Z79.84 Long term (current) use of oral hypoglycemic drugs; X58.XXXA Exposure to other specified factors, initial encounter
CPT/HCPCS: 51050; 36415; 36416; 74018; 74177; 80053; 81001; 82962; 85025; 85610; 87077; 87086; 87186; 88300; 90471; 90732; 96365; 99285; G0378; J0696; J1100; J1170; J2370; J2405; J2704; J2710; J3010; J3490; J7030; Q9967

== ENCOUNTER → 2022-07-10 13:29 | Outpatient (BNVA) | payer MEDICARE, OTHER, SELFPAY | PROVIDERS: PCP Electrodiagnostic Medicine; Visit Provider Urology | DX: T19.1XXA Foreign body in bladder, initial encounter (principal); X58.XXXA Exposure to other specified factors, initial encounter | CPT/HCPCS: 99024 ==

== ENCOUNTER 2023-07-20 15:38 | Emergency (ER) | payer MEDICARE, OTHER, SELFPAY ==
[2023-07-20] VITALS (13 sets, daily range): BP systolic 87–102; BP diastolic 59–60; PULSE 74–89; RESP 17–18; TEMP 36.9; O2SAT 88–95; BMI 25.1
[2023-07-20 16:00] LABS: Basophils % 0.3 %; Eosinophils % 0.1 %; Hematocrit 45.5 % (37-53); Lymphocytes % 44.4 %; Mean Corpuscular HGB Conc 35.2 g/dL (30-55); Mean Corpuscular Hemoglobin 31.9 pg (27-33); Mean Corpuscular Volume 90.6 fl (82-101); Mean Platelet Volume 13.1 fL (7.4-10.4); Monocytes # 0.6 10^3/uL (0.2-0.9); Monocytes % 6.4 %; Neutrophils # 4.39 10^3/uL (1.8-7.7); Neutrophils % 48.5 %; Nucleated Red Blood Cells % 0 %; Platelet Count 56 10^3/cmm (157-399); Red Blood Count 5.02 10^6/uL (3.85-5.65); Red Cell Distribution Width 12.1 % (12.1-15.1); White Blood Count 9.07 10^3/uL (3.29-11.43)
[2023-07-20 16:12] LABS: Slide Review Slide Review Perform
[2023-07-20 16:15] LABS: Alanine Aminotransferase 54 U/L (0-41); Albumin Level 3.6 g/dL (3.5-5.2); Alkaline Phosphatase 177 U/L (40-130); Anion Gap 15.6 (5-19); Aspartate Amino Transferase 54 U/L (0-40); Blood Urea Nitrogen 32 mg/dL (8-23); Calcium 8.9 mg/dL (8.5-10.5); Carbon Dioxide 27 mmol/L (22-29); Chloride 92 mmol/L (98-107); Creatinine Clr Calc Pharmacy 56.7575; Globulin 2.7 g/dL (1.3-4.6); Glucose 194 mg/dL (65-115); Lipase 37 U/L (13-60); Osmolality Calculated 284 mOsm/kg (285-295); Potassium 3.6 mmol/L (3.5-5.1); Sodium 131 mmol/L (136-145); Total Bilirubin 0.7 mg/dL (0.15-1.2); Total Protein 6.3 g/dL (6.6-8.7)
--- NOTE | 2023-07-20 16:31 | CTR_ITS ---
PROCEDURE INFORMATION: Exam: CT Abdomen And Pelvis With Contrast Exam date and time: 07/20/2023 5:09 PM Age: 78 years old Clinical indication: Other: PT reporting severe abd pain that started on Friday, had some diarrhea on Friday but nothing since. PT believes he has an intestinal blockage. ; Additional info: Llq pain, constipation, subj fevers TECHNIQUE: Imaging protocol: Computed tomography of the abdomen and pelvis with contrast. Radiation optimization: All CT scans at this facility use at least one of these dose optimization techniques: automated exposure control; mA and/or kV adjustment per patient size (includes targeted exams where dose is matched to clinical indication); or iterative reconstruction. Contrast material: OMNI 350; Contrast volume: 100 ml; Contrast route: INTRAVENOUS (IV); COMPARISON: CT abdomen pelvis w con* [id number] 07/01/2022 1:47 PM RADIATION DOSE METRICS: Total DLP (mGy-cm): 650.35 FINDINGS: Lungs: Mild bibasilar atelectasis/scar. Liver: The liver is unremarkable in appearance. Gallbladder and bile ducts: Gallbladder unremarkable in appearance without radio-opaque stone. No intra or extrahepatic biliary ductal dilation. Pancreas: Pancreas is unremarkable in appearance. No ductal dilation. Spleen: Enlarged spleen measuring up to 15.0 cm. Adrenal glands: Adrenal glands are unremarkable in appearance. Kidneys and ureters: No hydronephrosis. Nonobstructing 0.2 cm right renal stone. Simple appearing left renal cysts measuring up to 7.3 cm. Stomach and bowel: Heavy fecal pattern noted compatible with constipation. Recommend clinical correlation. Appendix: Visualized portions of the appendix are unremarkable. Intraperitoneal space: No ascites. Vasculature: Mild calcified plaque is seen involving the abdominal aorta. Lymph nodes: No abdominal or pelvic lymphadenopathy. Urinary bladder: Nonspecific bladder wall thickening. Cystitis cannot be excluded. Reproductive: Enlarged prostate measuring up to 4.9 cm. Bones/joints: No acute bony abnormality. Soft tissues: Umbilical hernia containing fat CT/CT abdomen pelvis w con* [id number] IMPRESSION: 1. Nonspecific bladder wall thickening. Cystitis cannot be excluded. 2. Heavy fecal pattern noted compatible with constipation. Recommend clinical correlation. 3. Splenomegaly. COMMENTS: Consistent with the [employer]'s Incidental Findings Committee white paper (J Am [employer]iol 2018): Any incidental renal lesion less than 1 cm or classified as too small to characterize, or any incidental cystic renal lesion characterized as simple-appearing, is likely benign. No follow-up imaging is recommended for these lesions per consensus recommendations based on imaging criteria.
[2023-07-20] MEDS: sodium chloride 0.9% 1,000 ML 999 ML IV (16:46)
[2023-07-20] MEDS: ondansetron 2 mg/ML SDV 2 mL 4 MG IVP (16:46)
[2023-07-20] MEDS: morphine 4 mg/mL SDV 1 mL IVP (16:46)
[2023-07-20] MEDS: iohexol 350 mg/mL 500 mL Btl (per mL) IV (17:13)
[2023-07-20 18:03] LABS: Specific Gravity, Urine 1.015 (1.005-1.030); Urine Appearance Slightly Cloudy (CLEAR); Urine Color Yellow (Yellow); pH Urine 5 (5-7)
[2023-07-20 18:04] LABS: Add Urine Microscopic? YES; Bacteria Urine 3+ /hpf; Bilirubin Urine Neg (Negative); Blood Urine 2+ (Negative); Glucose Urine UA 2+ (Normal); Ketones Urine Negative (Negative); Leukocyte Esterase Urine Trace (Negative); Nitrate Urine Positive (Negative); Protein Urine Trace (Negative); RBC Urine 0-4 /hpf (0-2); Squamous Epithelial Cell Urine 0-4 /hpf (0-5); Urobilinogen Urine Norm (Negative)
[2023-07-20 18:05] LABS: Add Urine Culture? Yes; Other Casts Urine WBC CAST /lpf
[2023-07-20] MEDS: cefTRIAXone 2,000 MG in sodium chloride 0.9% (plus) 50 ML 100 MG IV (18:37)
--- NOTE | 2023-07-20 19:03 | ED_ITS ---
HPI - Abdominal Pain 2 General: Chief Complaint: Abdominal Pain Stated Complaint: severe pain in stomach all week cant eat Time Seen by Provider: 07/20/23 16:30 Source: patient Mode of arrival: ambulatory Limitations: no limitations History of Present Illness: Patient was starting having severe abdominal pain and diarrhea on Friday the diarrhea stopped the abdominal pain has not gone away and he has had no bowel movement since Friday. He thinks he might have intestinal blockage he is now ready previous intestinal blockage is never any previous surgery. He denies any nausea vomiting or fever at this time. Of note patient's affect is very stoic. He also reports has not been able to eat much this week. Review of Systems 2 General: Reports: 10 or more systems reviewed and unremarkable except in HPI and below PFSH ED 2 PFSH: Medical History Diabetes Hemorrhoid Hypertension Family History Father , age 89 No problems noted. Mother , age 91 No problems noted. Social History Smoking and tobacco/nicotine status: never used tobacco/nicotine Alcohol intake: never Substance/Drug Use: never Marital status: Physical Exam 2 Const: COMMON NORMALS: no acute distress, average body habitus, patient oriented x3, healthy appearing, alert and well nourished GENERAL APPEARANCE: well kempt and well developed HENMT: COMMON NORMALS: normocephalic, atraumatic, external ears normal and moist oral mucous membranes HEAD & SCALP: normocephalic and atraumatic E XTERNAL EAR: Yes external ears normal Eye: COMMON NORMALS: Equal, round and reactive pupils present, EOMs intact bilaterally and conjunctivae normal CONJUNCTIVA: Yes conjunctivae normal P UPIL: Yes Equal, round and reactive pupils present Neck/C-Spine: COMMON NORMALS: full ROM, no lymphadenopathy and supple Chest: CHEST: Yes Symmetrical chest wall rise and No Surgical scars present (Chest) Resp: COMMON NORMALS: normal respiratory effort, No retractions, No use of accessory muscles and clear to auscultation bilaterally AUSCULTATION: clear to auscultation bilaterally Cardio: COMMON NORMALS: regular rate, regular rhythm, S1 normal heart sound present, S2 normal heart sound present, No gallops present (Cardio), No clicks present (Cardio), No murmurs present (Cardio) and No rub (Cardio) RATE: r egular rate RHYTHM: regular rhythm HEART SOUNDS: S1 normal heart sound present, S2 normal heart sound present and no murmurs PERIPHERAL PULSES: o ther (Radial pulses 2+ and symmetric) GI: COMMON NORMALS: Soft to palpation and no masses INSPECTION: No abdominal distension PALPATION: Yes Soft to palpation, Yes Tenderness to palpation present (GI) Details: other (Mild to periumbilical and left lower), No Guarding due to palpation present (GI) and No Rebound tenderness present : COMMON NORMALS: Yes no CVA tenderness BLADDER/KIDNEY EXAM: Yes no CVA tenderness Back/Pelvis: COMMON NORMALS: no CVA tenderness Extremity: COMMON NORMALS: normal to inspection, full ROM, capillary refill normal and no clubbing, cyanosis or edema Neuro: COMMON NORMALS: patient oriented x3 SENSORIUM/ORIENTATION: Yes alert Psych: APPEARANCE: Yes well kempt Skin: COMMON NORMALS: no rashes or lesions noted, no wounds, turgor normal and no jaundice GENERAL SKIN EXAM: no rashes or lesions noted and turgor normal Course 2 Vital Signs: Vital signs: Vital Signs Temperature 98.4 F 07/20/23 15:47 Pulse Rate 74 07/20/23 15:47 Respiratory Rate 17 07/20/23 16:46 Blood Pressure 102/59 07/20/23 18:35 Pulse Oximetry 88 L 07/20/23 18:35 Oxygen Delivery Me thod Room Air 07/20/23 15:47 MDM - Abdominal Pain Medical Decision Making Personally reviewed the CT and was rather unremarkable. Reviewing the labs patient peers to have a low platelet count that has had for some time as well as has a fairly significant UTI. With most hemorrhagic cystitis. 3+ bacteria. Also suspect some degree of dehydration with granular casts. Medical Records I reviewed the patient's medical records. Lab Data I reviewed the patient's lab results. 07/20/23 15:34 07/20/23 15:34 Labs/Radiology: Radiology Impressions Abdomen/Pelvis CT 07/20/23 16:31 IMPRESSION: 1. Nonspecific bladder wall thickening. Cystitis cannot be excluded. 2. Heavy fecal pattern noted compatible with constipation. Recommend clinical correlation. 3. Splenomegaly. COMMENTS: Consistent with the [employer]'s Incidental Findings Committee white paper (J [employer]iol 2018): Any incidental renal lesion less than 1 cm or classified as too small to characterize, or any incidental cystic renal lesion characterized as simple-appearing, is likely benign. No follow-up imaging is recommended for these lesions per consensus recommendations based on imaging criteria. Laboratory Results WBC 9.07 10^3/uL (3.29-11.43) 07/20/23 15:34 RBC 5.02 10^6/uL (3.85-5.65) 07/20/23 15:34 Hgb 16.00 g/dL (11.27-16.99) 07/20/23 15:34 Hct 45.5 % (37-53) 07/20/23 15:34 MCV 90.6 fl (82-101) 07/20/23 15:34 MCH 31.9 pg (27-33) 07/20/23 15:34 MCHC 35.2 g/dL (30-55) 07/20/23 15:34 RDW 12.1 % (12.1-15.1) 07/20/23 15:34 Plt Count 56 10^3/cmm (157-399) L 07/20/23 15:34 MPV 13.1 fL (7.4-10.4) H 07/20/23 15:34 Neut % (Auto) 48.5 % 07/20/23 15:34 Lymph % (Auto) 44.4 % 07/20/23 15:34 [place] % (Auto) 6.4 % 07/20/23 15:34 Eos % (Auto) 0.1 % 07/20/23 15:34 Baso % (Auto) 0.3 % 07/20/23 15:34 Neut # (Auto) 4.39 10^3/uL (1.8-7.7) 07/20/23 15:34 Lymph # (Auto) 4.0 10^3/uL (0.8-4.8) 07/20/23 15:34 Bay # (Auto) 0.6 10^3/uL (0.2-0.9) 07/20/23 15:34 Eos # (Auto) 0.0 10^3/uL (0.0-0.8) 07/20/23 15:34 Baso # (Auto) 0.0 10^3/uL (0.0-0.1) 07/20/23 15:34 Nucleated RBC % (auto) 0 % 07/20/23 15:34 Nucleated RBCs # 0.0 /100WBC 07/20/23 15:34 Sodium 131 mmol/L (136-145) L 07/20/23 15:34 Potassium 3.6 mmol/L (3.5-5.1) 07/20/23 15:34 Chloride 92 mmol/L (98-107) L 07/20/23 15:34 Carbon Dioxide 27 mmol/L (22-29) 07/20/23 15:34 Anion Gap 15.6 (5-19) 07/20/23 15:34 BUN 32 mg/dL (8-23) H 07/20/23 15:34 Creatinine 1.2 mg/dL (0.7-1.2) 07/20/23 15:34 GFR Calculation Not Reportable 07/20/23 15:34 Glucose 194 mg/dL (65-115) H 07/20/23 15:34 Calculated Osmolality 284 mOsm/kg (285-295) L 07/20/23 15:34 Calcium 8.9 mg/dL (8.5-10.5) 07/20/23 15:34 Total Bilirubin 0.7 mg/dL (0.15-1.2) 07/20/23 15:34 AST 54 U/L (0-40) H 07/20/23 15:34 ALT 54 U/L (0-41) H 07/20/23 15:34 Alkaline Phosphatase 177 U/L (40-130) H 07/20/23 15:34 Total Protein 6.3 g/dL (6.6-8.7) L 07/20/23 15:34 Albumin 3.6 g/dL (3.5-5.2) 07/20/23 15:34 Globulin 2.7 g/dL (1.3-4.6) 07/20/23 15:34 Lipase 37 U/L (13-60) 07/20/23 15:34 Urine Color Yellow (Yellow) 07/20/23 17:45 Urine Appearance Slightly cloudy (CLEAR) 07/20/23 17:45 Urine pH 5 (5-7) 07/20/23 17:45 Ur Specific [place] 1.015 (1.005-1.030) 07/20/23 17:45 Urine Protein Trace (Negative) 07/20/23 17:45 Urine Glucose (UA) 2+ (Normal) H 07/20/23 17:45 Urine Ketones Negative (Negative) 07/20/23 17:45 Urine Blood 2+ (Negative) H 07/20/23 17:45 Urine Nitrate Positive (Negative) H 07/20/23 17:45 Urine Bilirubin Neg (Negative) 07/20/23 17:45 Urine Urobilinogen Norm mg/dL (Negative) 07/20/23 17:45 Ur Leukocyte Esterase Trace (Negative) H 07/20/23 17:45 Urine RBC 0-4 /hpf (0-2) H 07/20/23 17:45 Urine WBC 5-10 /hpf (0-5) H 07/20/23 17:45 Ur Squamous Epith Cells 0-4 /hpf (0-5) H 07/20/23 17:45 Amorphous Sediment Not Reportable 07/20/23 17:45 Urine Bacteria 3+ /hpf (NONE) H 07/20/23 17:45 Coarse Granular Casts 5-10 /lpf H 07/20/23 17:45 Other Casts Wbc cast /lpf 07/20/23 17:45 All radiology interpretation(s) finalized by discharge ED provider radiology interpretation(s): see MDM discussion Discharge Plan Discharge Patient Disposition: Home Clinical Impression: Acute lower UTI, Acute hemorrhagic cystitis Condition: Stable Prescriptions: New Urogesic-Blue 81.6-40.8-0.12 mg tablet 1 tab PO QID 3 Days Qty: 12 0RF Rx Instructions: administer with plenty of fluids cefdinir 300 mg capsule 300 mg PO BID 5 Days Qty: 10 0RF Senna Lax 8.6 mg tablet 17.2 mg PO BID 3 Days Qty: 12 0RF No Action metformin 500 mg tablet 500 mg PO BID amlodipine 5 mg tablet 5 mg PO BEDTIME ibuprofen 200 mg Tablet 600 mg PO Q8H PRN (Reason: Pain) tadalafil 20 mg tablet 20 mg PO DAILY PRN (Reason: Erectile Dysfunction) valsartan-hydrochlorothiazide 320-25 mg tablet 1 tab PO QAM [place] 0.01 % drops 1 drp ophthalmic (eye) BEDTIME Rx Instructions: in left eye PreserVision AREDS-2 250-90-40-1 mg Capsule 1 tab PO BID Discharge Orders: Discharge ED (Routine); Ordered 07/20/23 Ordered By: Yazan Mckeon Referrals: Akshat Arnett DO [Primary Care Provider] - Discharge Diet: Advance as tolerated Discharge Activity: Resume usual activity Patient Instructions: Constipation (ED), Urinary Tract Infection in Men (ED) Activity Restrictions/Additional Instructions: I have prescribed you antibiotics as well as antispasmodic for your UTI that should help with the pain. Also some senna to help get your bowels moving again. The antispasmodic for your bladder will turn your urine a blue-green color this is normal. Will hold off on stronger pain meds such as [place] or Percocet as they would cause worsening constipation. Coding Level of Care Code ED [facility] Machine Operator for Mariposa Florentino
== END 2023-07-20 19:47 | disposition home or self-care (01) ==
PROVIDERS: Emergency Medicine; Emergency Provider Emergency Medicine; PCP Electrodiagnostic Medicine
DX: N30.01 Acute cystitis with hematuria (principal); Z79.84 Long term (current) use of oral hypoglycemic drugs; E11.9 Type 2 diabetes mellitus without complications; I10 Essential (primary) hypertension
CPT/HCPCS: 74177; 80053; 81001; 83690; 85025; 87077; 87086; 87186; 96361; 96374; 96375; 99285; J0696; J2270; J2405; J7030; Q9967

== ENCOUNTER → 2023-09-30 14:32 | Outpatient (BNVA) | payer MEDICARE, OTHER, SELFPAY | PROVIDERS: PCP Electrodiagnostic Medicine; Visit Provider Dermatology | DX: D48.5 Neoplasm of uncertain behavior of skin (principal); L57.0 Actinic keratosis; L57.8 Other skin changes due to chronic exposure to nonionizing radiation; L82.1 Other seborrheic keratosis; L91.8 Other hypertrophic disorders of the skin | CPT/HCPCS: 11102; 17000; 99203 ==

== ENCOUNTER → 2023-10-06 14:07 | Outpatient (BNVA) | payer MEDICARE, OTHER, SELFPAY | PROVIDERS: PCP Electrodiagnostic Medicine; Visit Provider Dermatology | DX: C44.329 Squamous cell carcinoma of skin of other parts of face (principal) | CPT/HCPCS: 13131; 17311 ==

== ENCOUNTER → 2024-02-24 14:00 | Outpatient (BNVA) | payer MEDICARE, OTHER, SELFPAY | PROVIDERS: PCP Electrodiagnostic Medicine; Visit Provider Nurse Practitioner Family | DX: L82.1 Other seborrheic keratosis (principal); L91.8 Other hypertrophic disorders of the skin; L60.3 Nail dystrophy; L57.8 Other skin changes due to chronic exposure to nonionizing radiation; Z08 Encounter for follow-up examination after completed treatment for malignant neoplasm; Z85.828 Personal history of other malignant neoplasm of skin; L57.0 Actinic keratosis | CPT/HCPCS: 17000; 99213 ==

== ENCOUNTER → 2024-06-16 14:52 | Outpatient (BNVA) | payer MEDICARE, OTHER, SELFPAY | PROVIDERS: PCP Electrodiagnostic Medicine; Visit Provider Nurse Practitioner Family | DX: L57.8 Other skin changes due to chronic exposure to nonionizing radiation (principal); X32.XXXA Exposure to sunlight, initial encounter; L81.4 Other melanin hyperpigmentation; L82.1 Other seborrheic keratosis; Z08 Encounter for follow-up examination after completed treatment for malignant neoplasm; Z85.828 Personal history of other malignant neoplasm of skin; L57.0 Actinic keratosis | CPT/HCPCS: 17000; 99213 ==

== ENCOUNTER → 2024-12-28 09:26 | Outpatient (BNVA) | payer MEDICARE, OTHER, SELFPAY | PROVIDERS: PCP Electrodiagnostic Medicine; Visit Provider Nurse Practitioner Family | DX: L92.3 Foreign body granuloma of the skin and subcutaneous tissue (principal); L57.8 Other skin changes due to chronic exposure to nonionizing radiation; X32.XXXA Exposure to sunlight, initial encounter; L81.4 Other melanin hyperpigmentation; L82.1 Other seborrheic keratosis; Z08 Encounter for follow-up examination after completed treatment for malignant neoplasm; Z85.828 Personal history of other malignant neoplasm of skin; L82.0 Inflamed seborrheic keratosis; Z78.9 Other specified health status; L53.8 Other specified erythematous conditions; L29.89 Other pruritus; L57.0 Actinic keratosis | CPT/HCPCS: 17000; 17110; 99213 ==